=== PATIENT | male | born 1950 | race Caucasian/White ===

== ENCOUNTER 2020-02-23 09:57 | Inpatient (IN) ==
[2020-02-23] MEDS ORDERED: AZITHROMYCIN INJ 500 MG in SODIUM CHLORIDE 0.9% 250 ML IV STA (10:29)
[2020-02-23] MEDS ORDERED: SODIUM CHLORIDE 0.9% 500 ML IV STA (10:29)
[2020-02-23] MEDS ORDERED: methylPREDNISolone SOD SUC 125 MG/2 ML VIAL IV STA (10:29)
[2020-02-23] MEDS ORDERED: DICYCLOMINE 20 MG/2 ML AMP IM ONE (10:29)
[2020-02-23] MEDS ORDERED: ONDANSETRON 4 MG/2 ML VIAL IV STA (10:29)
[2020-02-23 11:37] LABS: Basophils % 0.5 % (0.0-0.8); Hematocrit 40.5 VOL% (42.0-52.0); Hemoglobin 13.3 GM/DL (14.0-18.0); Immature Granulocytes % 0.5 %; Immature Granulocytes Absolute 0.02 #; Lymphocytes # 0.5 10*3/uL (1.4-4.0); Lymphocytes % 12.7 % (21.2-54.2); Mean Corpuscular HGB Conc 32.8 GM/DL (32-36); Mean Corpuscular Volume 82.2 FL (87-102); Mean Platelet Volume 10.3 FL (9.6-12.0); Monocytes % 9.1 % (1.7-12.7); Neutrophils % 77.2 % (38.7-73.9); Platelet Count 263 T/CUMM (130-400); Red Blood Count 4.93 MC/CUMM (3.8-5.5); Red Cell Distribution Width 12.8 % (9.3-17.3); White Blood Count 3.9 T/CUMM (4-12)
[2020-02-23 11:52] LABS: PT Patient Result 10.9 SECS (9.8-11.9); Partial Thromboplastin Time 32.4 SECS (23.9-33.8)
[2020-02-23 12:06] LABS: Alanine Aminotransferase 30 U/L (16-61); Albumin 3.5 G/DL (3.4-5.0); Alkaline Phosphatase 70 U/L (45-117); Amylase 94 U/L (25-115); Aspartate Amino Transferase 38 U/L (0-37); Blood Urea Nitrogen 12 MG/DL (7-18); Calcium 8.5 MG/DL (8.5-10.1); Estimated Glom Filtration Rate 71 ML/MIN; Ferritin 130.2 ng/ml (26-388); Glucose 91 MG/DL (74-106); Osmolality,Calculated 267.2 MOS/KG (273-304); Total Protein 7.9 G/DL (6.4-8.3); Troponin I < 0.015 NG/ML (0.00-0.045)
[2020-02-23] MEDS ORDERED: cefTRIAXone 1,000 MG in SODIUM CHLORIDE 0.9% 100 ML IV STA (12:07)
[2020-02-23] MEDS ORDERED: MAGNESIUM SULF RIDER 2 GM in PREMIX 1 EACH IV PRN (12:48)
[2020-02-23] MEDS ORDERED: MAGNESIUM SULF RIDER 4 GM in PREMIX 1 EACH IV PRN (12:48)
[2020-02-23] MEDS ORDERED: POTASSIUM CHLORIDE RIDER 10 MEQ in PREMIX 1 EACH IV PRN (12:48)
[2020-02-23] MEDS ORDERED: PROMETHAZINE 25 MG/1 ML VIAL IM PRN (12:52)
[2020-02-23] MEDS ORDERED: CALCIUM CARBONATE CHEW 500 MG TABLET PO PRN (12:52)
[2020-02-23] MEDS ORDERED: DEXTROSE 50% 25 GM/50 ML VIAL IV PRN (12:52)
[2020-02-23] MEDS ORDERED: hydrALAZINE 20 MG/1 ML VIAL IV PRN (12:52)
[2020-02-23] MEDS ORDERED: ALUMINUM/MAGNES/SIMETH MAX STR 30 ML UDCUP PO PRN (12:52)
[2020-02-23] MEDS ORDERED: GLUCAGON 1 MG VIAL IM PRN (12:52)
[2020-02-23] MEDS ORDERED: diphenhydrAMINE CAP 25 MG CAPSULE PO PRN (12:52)
[2020-02-23] MEDS ORDERED: LACTULOSE 20 GM/30 ML UDCUP PO PRN (12:52)
[2020-02-23] MEDS ORDERED: DOCUSATE SODIUM 100 MG CAPSULE PO PRN (12:52)
[2020-02-23] MEDS ORDERED: BISACODYL 5 MG TABLET PO PRN (12:52)
[2020-02-23] MEDS ORDERED: ZALEPLON 5 MG CAPSULE PO PRN (12:52)
[2020-02-23 13:49] LABS: Apearance,Urine CLEAR (Clear); Bilirubin,Urine Negative (Negative); Blood, Urine Small mg/dL (Negative); Glucose,Urine (UA) Negative (Negative); Ketones,Urine Negative (Negative); Mucus,Urine Occasional /LPF (Occasional); Nitrite,Urine Negative (Negative); Protein,Urine Negative; RBC,Urine 12 /HPF (0-4); Squamous Epithelial Cell,Urine Occasional /HPF (0-10); Urine Color Yellow (Yellow); Urine Specific Gravity 1.015 (1.001-1.035); Urine Urobilinogen < 2.0 EU/DL (0.2-1.0); WBC,Urine 3 /HPF (0-6)
[2020-02-23] MEDS: BENZONATATE 100 MG CAPSULE PO SCH ×2 (14:44→20:25)
[2020-02-23 17:13] LABS: ABG Base Excess -1.9 MMOL/L (-2.5-2.5); ABG HCO3 22.8 MMOL/L (20-26); ABG Oxygen Saturation 99.4 % (95-100); ABG PH 7.462 (7.35-7.45); ABG TCO2 18.1 MMOL/L (23-27)
[2020-02-23] MEDS: ENOXAPARIN 60 MG/0.6 ML SYRINGE SUBCUT SCH (20:24)
[2020-02-23] MEDS: traZODone 50 MG TABLET PO PRN (20:25)
[2020-02-23] MEDS: guaiFENesin/DM ER 600-30 MG TABLET PO SCH (20:25)
[2020-02-24 04:04] LABS: Hematocrit 36.6 VOL% (42.0-52.0); Immature Granulocytes % 0.6 %; Immature Granulocytes Absolute 0.01 #; Lymphocytes # 0.4 10*3/uL (1.4-4.0); Lymphocytes % 24.3 % (21.2-54.2); Mean Corpuscular HGB Conc 32.8 GM/DL (32-36); Mean Corpuscular Volume 82.8 FL (87-102); Mean Platelet Volume 10.7 FL (9.6-12.0); Monocytes % 6.2 % (1.7-12.7); Neutrophils % 68.9 % (38.7-73.9); Platelet Count 241 T/CUMM (130-400); Red Blood Count 4.42 MC/CUMM (3.8-5.5); Red Cell Distribution Width 12.8 % (9.3-17.3); White Blood Count 1.8 T/CUMM (4-12)
[2020-02-24 04:20] LABS: Albumin 3.2 G/DL (3.4-5.0); Bilirubin,Total 0.4 MG/DL (0.2-1.0); Calcium 8.3 MG/DL (8.5-10.1); Ferritin 129.6 ng/ml (26-388); Total Protein 7.3 G/DL (6.4-8.3)
[2020-02-24 04:25] LABS: Risk Ratio 3.88; Thyroid Stimulating Hormone 0.58 uIU/ml (0.358-3.74); VLDL CHOLESTEROL 22.2 MG/DL
[2020-02-24 06:13] LABS: Sedimentation Rate-Westergren 29 MM/HR (0-20)
[2020-02-24] MEDS: ENOXAPARIN 60 MG/0.6 ML SYRINGE SUBCUT SCH ×3 (08:20→21:51)
[2020-02-24] MEDS: BENZONATATE 100 MG CAPSULE PO SCH ×3 (08:20→21:41)
[2020-02-24] MEDS: ENALAPRIL 10 MG TABLET PO SCH (08:21)
[2020-02-24] MEDS: PANTOPRAZOLE 40 MG TABLET PO SCH (08:21)
[2020-02-24] MEDS: guaiFENesin/DM ER 600-30 MG TABLET PO SCH ×2 (08:21→21:41)
[2020-02-24 08:24] LABS: Hypochromasia 1+; Lymphocytes 30 % (20-55); Segmented Neutrophils 64 % (50-85)
[2020-02-24 08:25] LABS: Microcytosis Slight; Platelet Estimate Normal
[2020-02-24 08:26] LABS: Total Cells Counted 100
[2020-02-24] MEDS ORDERED: AZITHROMYCIN INJ 500 MG in SODIUM CHLORIDE 0.9% 250 ML IV SCH (09:00)
[2020-02-24] MEDS: busPIRone 5 MG TABLET PO SCH ×2 (11:20→21:41)
[2020-02-24 12:47] LABS: PT Patient Result 10.4 SECS (9.8-11.9)
[2020-02-24] MEDS: cefTRIAXone 1,000 MG in SYRINGE 1 EACH IV SCH (13:16)
[2020-02-25] MEDS: SIMETHICONE CHEW 125 MG TABLET PO PRN ×2 (04:38→11:37)
[2020-02-25 06:09] LABS: Hematocrit 35.1 VOL% (42.0-52.0); Hemoglobin 11.7 GM/DL (14.0-18.0); Immature Granulocytes % 0.6 %; Immature Granulocytes Absolute 0.06 #; Lymphocytes # 0.7 10*3/uL (1.4-4.0); Lymphocytes % 6.5 % (21.2-54.2); Mean Corpuscular HGB Conc 33.3 GM/DL (32-36); Mean Platelet Volume 10.6 FL (9.6-12.0); Monocytes % 3.4 % (1.7-12.7); Neutrophils % 89.5 % (38.7-73.9); Platelet Count 287 T/CUMM (130-400); Red Blood Count 4.28 MC/CUMM (3.8-5.5); Red Cell Distribution Width 12.9 % (9.3-17.3); White Blood Count 10.2 T/CUMM (4-12)
[2020-02-25 06:33] LABS: Albumin 2.9 G/DL (3.4-5.0); Bilirubin,Total 1.3 MG/DL (0.2-1.0); Ferritin 104.8 ng/ml (26-388); Osmolality,Calculated 273.1 MOS/KG (273-304); Total Protein 6.7 G/DL (6.4-8.3)
[2020-02-25 06:39] LABS: PT Patient Result 10.6 SECS (9.8-11.9)
[2020-02-25 07:30] LABS: Sedimentation Rate-Westergren 46 MM/HR (0-20)
[2020-02-25] MEDS: guaiFENesin/DM ER 600-30 MG TABLET PO SCH ×2 (08:22→20:55)
[2020-02-25] MEDS: BENZONATATE 100 MG CAPSULE PO SCH ×3 (08:23→20:55)
[2020-02-25] MEDS: ENALAPRIL 10 MG TABLET PO SCH (08:23)
[2020-02-25] MEDS: busPIRone 5 MG TABLET PO SCH ×2 (08:23→20:55)
[2020-02-25] MEDS: PANTOPRAZOLE 40 MG TABLET PO SCH (08:23)
[2020-02-25] MEDS: cefTRIAXone 1,000 MG in SYRINGE 1 EACH IV SCH (10:46)
[2020-02-25] MEDS: AZITHROMYCIN 250 MG TABLET PO SCH (10:46)
[2020-02-25] MEDS: ONDANSETRON 4 MG/2 ML VIAL IV PRN ×2 (11:38→21:01)
[2020-02-25] MEDS: traZODone 50 MG TABLET PO PRN (20:56)
[2020-02-25] MEDS: ENOXAPARIN 40 MG/0.4 ML SYRINGE SUBCUT SCH (22:57)
[2020-02-26] MEDS: ONDANSETRON 4 MG/2 ML VIAL IV PRN ×4 (04:43→23:57)
[2020-02-26] MEDS: ACETAMINOPHEN 325 MG TABLET PO PRN ×2 (04:45→11:43)
[2020-02-26 06:20] LABS: INR 1.1; PT Patient Result 11.6 SECS (9.8-11.9)
[2020-02-26 06:28] LABS: Basophils % 0.1 % (0.0-0.8); Hematocrit 34.6 VOL% (42.0-52.0); Hemoglobin 11.2 GM/DL (14.0-18.0); Immature Granulocytes % 0.6 %; Immature Granulocytes Absolute 0.06 #; Lymphocytes # 0.4 10*3/uL (1.4-4.0); Lymphocytes % 3.8 % (21.2-54.2); Mean Corpuscular HGB Conc 32.4 GM/DL (32-36); Mean Platelet Volume 10.7 FL (9.6-12.0); Monocytes % 3.9 % (1.7-12.7); Neutrophils % 91.6 % (38.7-73.9); Platelet Count 301 T/CUMM (130-400); Red Blood Count 4.12 MC/CUMM (3.8-5.5); Red Cell Distribution Width 13.2 % (9.3-17.3); White Blood Count 9.9 T/CUMM (4-12)
[2020-02-26 06:50] LABS: Albumin 2.8 G/DL (3.4-5.0); Bilirubin,Total 1.4 MG/DL (0.2-1.0); Calcium 8.1 MG/DL (8.5-10.1); Ferritin 134.8 ng/ml (26-388); Osmolality,Calculated 267.5 MOS/KG (273-304); Total Protein 6.8 G/DL (6.4-8.3)
[2020-02-26 07:02] LABS: Hypochromasia 1+; Lymphocytes 3 % (20-55); Microcytosis Slight; Platelet Estimate Adequate; Segmented Neutrophils 97 % (50-85); Total Cells Counted 100
[2020-02-26 08:21] LABS: Sedimentation Rate-Westergren 57 MM/HR (0-20)
[2020-02-26] MEDS: ENALAPRIL 10 MG TABLET PO SCH (08:31)
[2020-02-26] MEDS: BENZONATATE 100 MG CAPSULE PO SCH ×3 (08:31→21:27)
[2020-02-26] MEDS: busPIRone 5 MG TABLET PO SCH ×2 (08:31→21:28)
[2020-02-26] MEDS: cefTRIAXone 1,000 MG in SYRINGE 1 EACH IV SCH (08:31)
[2020-02-26] MEDS: guaiFENesin/DM ER 600-30 MG TABLET PO SCH ×2 (08:31→21:28)
[2020-02-26] MEDS: AZITHROMYCIN 250 MG TABLET PO SCH (08:31)
[2020-02-26] MEDS: ENOXAPARIN 40 MG/0.4 ML SYRINGE SUBCUT SCH (21:28)
[2020-02-26] MEDS: traZODone 50 MG TABLET PO PRN (21:28)
[2020-02-27 00:02] LABS: Specimen Source THROAT
[2020-02-27 06:13] LABS: Basophils % 0.1 % (0.0-0.8); Hematocrit 34.3 VOL% (42.0-52.0); Hemoglobin 11.1 GM/DL (14.0-18.0); Immature Granulocytes % 0.4 %; Immature Granulocytes Absolute 0.05 #; Lymphocytes # 0.5 10*3/uL (1.4-4.0); Lymphocytes % 4.5 % (21.2-54.2); Mean Corpuscular HGB Conc 32.4 GM/DL (32-36); Mean Corpuscular Volume 84.3 FL (87-102); Mean Platelet Volume 10.5 FL (9.6-12.0); Monocytes % 2.8 % (1.7-12.7); Neutrophils % 92.2 % (38.7-73.9); Platelet Count 338 T/CUMM (130-400); Red Blood Count 4.07 MC/CUMM (3.8-5.5); Red Cell Distribution Width 13.1 % (9.3-17.3); White Blood Count 11.4 T/CUMM (4-12)
[2020-02-27 06:27] LABS: INR 1.1; PT Patient Result 12.1 SECS (9.8-11.9)
[2020-02-27 06:36] LABS: Hypochromasia 1+; Lymphocytes 8 % (20-55); Microcytosis Slight; Platelet Estimate Adequate; Segmented Neutrophils 91 % (50-85); Total Cells Counted 100
[2020-02-27 06:55] LABS: Albumin 2.6 G/DL (3.4-5.0); Bilirubin,Total 1.2 MG/DL (0.2-1.0); Calcium 8.1 MG/DL (8.5-10.1); Ferritin 263.6 ng/ml (26-388); Osmolality,Calculated 267.5 MOS/KG (273-304); Total Protein 6.7 G/DL (6.4-8.3)
[2020-02-27 07:50] LABS: Sedimentation Rate-Westergren 60 MM/HR (0-20)
[2020-02-27] MEDS: AZITHROMYCIN 250 MG TABLET PO SCH (08:31)
[2020-02-27] MEDS: cefTRIAXone 1,000 MG in SYRINGE 1 EACH IV SCH (08:31)
[2020-02-27] MEDS: SIMETHICONE CHEW 125 MG TABLET PO PRN (08:31)
[2020-02-27] MEDS: guaiFENesin/DM ER 600-30 MG TABLET PO SCH ×2 (08:31→21:14)
[2020-02-27] MEDS: busPIRone 5 MG TABLET PO SCH ×2 (08:32→21:13)
[2020-02-27] MEDS: BENZONATATE 100 MG CAPSULE PO SCH ×3 (08:32→21:14)
[2020-02-27] MEDS: ENALAPRIL 10 MG TABLET PO SCH (08:32)
[2020-02-27] MEDS ORDERED: SODIUM PHOSPHATE ENEMA 133 ML BOTTLE RECTAL PRN (16:40)
[2020-02-27] MEDS: SIMETHICONE CHEW 125 MG TABLET PO SCH ×3 (17:07→22:30)
[2020-02-27] MEDS: METOCLOPRAMIDE 10 MG/2 ML VIAL IV SCH ×2 (17:07→23:47)
[2020-02-27 17:26] LABS: Apearance,Urine CLEAR (Clear); Bilirubin,Urine Negative (Negative); Blood, Urine Small mg/dL (Negative); Glucose,Urine (UA) Negative (Negative); Ketones,Urine 20 mg/dL (Negative); Mucus,Urine Occasional /LPF (Occasional); Nitrite,Urine Negative (Negative); Protein,Urine 30 MG/DL; RBC,Urine 2 /HPF (0-4); Urine Color Yellow (Yellow); Urine Specific Gravity 1.026 (1.001-1.035); Urine Urobilinogen < 2.0 EU/DL (0.2-1.0); WBC,Urine 2 /HPF (0-6)
[2020-02-27] MEDS: ENOXAPARIN 40 MG/0.4 ML SYRINGE SUBCUT SCH (21:14)
[2020-02-27] MEDS: traZODone 50 MG TABLET PO PRN (21:14)
[2020-02-27] MEDS: ACETAMINOPHEN 325 MG TABLET PO PRN (23:47)
[2020-02-28] MEDS: METOCLOPRAMIDE 10 MG/2 ML VIAL IV SCH ×2 (05:30→12:16)
[2020-02-28 05:37] LABS: Basophils % 0.1 % (0.0-0.8); Hematocrit 34.2 VOL% (42.0-52.0); Hemoglobin 11.2 GM/DL (14.0-18.0); Immature Granulocytes % 0.3 %; Immature Granulocytes Absolute 0.02 #; Lymphocytes # 0.6 10*3/uL (1.4-4.0); Lymphocytes % 8.2 % (21.2-54.2); Mean Corpuscular HGB Conc 32.7 GM/DL (32-36); Mean Corpuscular Volume 82.8 FL (87-102); Mean Platelet Volume 10.1 FL (9.6-12.0); Monocytes % 5.3 % (1.7-12.7); Neutrophils % 86.1 % (38.7-73.9); Platelet Count 360 T/CUMM (130-400); Red Blood Count 4.13 MC/CUMM (3.8-5.5); Red Cell Distribution Width 12.8 % (9.3-17.3); White Blood Count 7.4 T/CUMM (4-12)
[2020-02-28 05:45] LABS: PT Patient Result 11.2 SECS (9.8-11.9)
[2020-02-28 05:58] LABS: Albumin 2.3 G/DL (3.4-5.0); Bilirubin,Total 0.8 MG/DL (0.2-1.0); Ferritin 416.6 ng/ml (26-388); Osmolality,Calculated 269.5 MOS/KG (273-304); Total Protein 6.4 G/DL (6.4-8.3)
[2020-02-28 06:48] LABS: Sedimentation Rate-Westergren 97 MM/HR (0-20)
[2020-02-28] MEDS: guaiFENesin/DM ER 600-30 MG TABLET PO SCH (08:58)
[2020-02-28] MEDS: SIMETHICONE CHEW 125 MG TABLET PO SCH ×2 (08:58→12:17)
[2020-02-28] MEDS: ENALAPRIL 10 MG TABLET PO SCH (08:58)
[2020-02-28] MEDS: AZITHROMYCIN 250 MG TABLET PO SCH (08:58)
[2020-02-28] MEDS: cefTRIAXone 1,000 MG in SYRINGE 1 EACH IV SCH (08:59)
[2020-02-28] MEDS: BENZONATATE 100 MG CAPSULE PO SCH (08:59)
[2020-02-28] MEDS: busPIRone 5 MG TABLET PO SCH (08:59)
[2020-02-28] MEDS: ACETAMINOPHEN 325 MG TABLET PO PRN (08:59)
[2020-02-28 11:59] VITALS: BP 125/68
== END 2020-02-28 13:44 | disposition home or self-care (01) | DRG 177 ==
LOC: N.ED 09:57 → SUATTDRO 12:52 → N.EDINP 12:52 → N.CC 14:07 → N.2E 02-24 13:31
PROVIDERS: ADMIT Hospitalist; ATTEND Internal Medicine

== ENCOUNTER 2020-03-01 13:08 | Inpatient (IN) ==
[2020-03-01] MEDS ORDERED: AZITHROMYCIN 250 MG TABLET PO STA (13:46)
[2020-03-01] MEDS ORDERED: ASPIRIN 325 MG TABLET ONE (13:46)
[2020-03-01] MEDS ORDERED: SODIUM CHLORIDE 0.9% 1,000 ML IV STA (13:46)
[2020-03-01] MEDS ORDERED: methylPREDNISolone SOD SUC 125 MG/2 ML VIAL IV STA (13:46)
[2020-03-01] MEDS ORDERED: VANCOMYCIN INJ 1,250 MG in SODIUM CHLORIDE 0.9% 250 ML IV STA (13:46)
[2020-03-01] MEDS ORDERED: VANCOMYCIN 1,000 MG VIAL ONE (14:03)
[2020-03-01] MEDS ORDERED: ACETAMINOPHEN 500 MG TABLET ONE (14:04)
[2020-03-01 14:32] LABS: Basophils % 0.1 % (0.0-0.8); Eosinophils % 0.1 % (0.00-10.9); Hematocrit 35.1 VOL% (42.0-52.0); Hemoglobin 11.7 GM/DL (14.0-18.0); Immature Granulocytes % 0.8 %; Immature Granulocytes Absolute 0.06 #; Lymphocytes # 0.5 10*3/uL (1.4-4.0); Lymphocytes % 6.9 % (21.2-54.2); Mean Corpuscular HGB Conc 33.3 GM/DL (32-36); Mean Corpuscular Volume 81.3 FL (87-102); Mean Platelet Volume 9.7 FL (9.6-12.0); Monocytes % 9.2 % (1.7-12.7); Neutrophils % 82.9 % (38.7-73.9); Platelet Count 406 T/CUMM (130-400); Red Blood Count 4.32 MC/CUMM (3.8-5.5); Red Cell Distribution Width 12.7 % (9.3-17.3); White Blood Count 7.5 T/CUMM (4-12)
[2020-03-01 14:43] LABS: INR 1.3; PT Patient Result 14.1 SECS (9.8-11.9)
[2020-03-01] MEDS ORDERED: ACETAMINOPHEN 500 MG TABLET PO STA (14:45)
[2020-03-01 15:05] LABS: Alanine Aminotransferase 36 U/L (16-61); Albumin 2.4 G/DL (3.4-5.0); Alkaline Phosphatase 56 U/L (45-117); Aspartate Amino Transferase 58 U/L (0-37); Blood Urea Nitrogen 20 MG/DL (7-18); Calcium 8.2 MG/DL (8.5-10.1); Estimated Glom Filtration Rate 77 ML/MIN; Glucose 109 MG/DL (74-106); Osmolality,Calculated 271.2 MOS/KG (273-304); Troponin I 0.016 NG/ML (0.00-0.045)
[2020-03-01] MEDS ORDERED: POTASSIUM BICARB EFFERVESCENT 25 MEQ TABLET PO ONE (15:29)
[2020-03-01] MEDS ORDERED: ONDANSETRON 4 MG/2 ML VIAL IV PRN (17:58)
[2020-03-01] MEDS: SODIUM CHLOR 0.9% KCL 40 MEQ 40 MEQ/1,000 ML BAG IV SCH (20:41)
[2020-03-01] MEDS: CEFEPIME 1,000 MG in SODIUM CHLORIDE 0.9% 100 ML IV SCH (20:42)
[2020-03-01] MEDS: POTASSIUM CHLORIDE 20 MEQ TABLET PO SCH ×2 (20:43→23:54)
[2020-03-01] MEDS ORDERED: ENOXAPARIN 40 MG/0.4 ML SYRINGE SUBCUT SCH (21:00)
[2020-03-01] MEDS ORDERED: POTASSIUM CHLORIDE 20 MEQ TABLET PO SCH (23:30)
[2020-03-02] MEDS: CEFEPIME 1,000 MG in SODIUM CHLORIDE 0.9% 100 ML IV SCH ×4 (03:03→20:57)
[2020-03-02 04:12] LABS: Basophils % 0.2 % (0.0-0.8); Hematocrit 32.3 VOL% (42.0-52.0); Immature Granulocytes % 0.4 %; Immature Granulocytes Absolute 0.02 #; Lymphocytes # 0.5 10*3/uL (1.4-4.0); Lymphocytes % 8.5 % (21.2-54.2); Mean Corpuscular HGB Conc 34.1 GM/DL (32-36); Mean Corpuscular Volume 80.5 FL (87-102); Mean Platelet Volume 10.3 FL (9.6-12.0); Monocytes % 8.5 % (1.7-12.7); Neutrophils % 82.4 % (38.7-73.9); Platelet Count 342 T/CUMM (130-400); Red Blood Count 4.01 MC/CUMM (3.8-5.5); White Blood Count 5.4 T/CUMM (4-12)
[2020-03-02 04:33] LABS: Bilirubin,Total 0.7 MG/DL (0.2-1.0); Calcium 8.1 MG/DL (8.5-10.1); Osmolality,Calculated 280.7 MOS/KG (273-304); Total Protein 6.1 G/DL (6.4-8.3)
[2020-03-02] MEDS: SODIUM CHLOR 0.9% KCL 40 MEQ 40 MEQ/1,000 ML BAG IV SCH ×2 (06:58→13:22)
[2020-03-02] MEDS: PANTOPRAZOLE 40 MG TABLET PO SCH (09:18)
[2020-03-02] MEDS: DEXAMETHASONE INJ 6 MG in SODIUM CHLORIDE 0.9% 50 ML IV SCH (10:02)
[2020-03-02] MEDS: ENALAPRIL 20 MG TABLET PO SCH (13:20)
[2020-03-02] MEDS: SODIUM CHLORIDE 0.9% 1,000 ML IV SCH (13:20)
[2020-03-02] MEDS: ENOXAPARIN 40 MG/0.4 ML SYRINGE SUBCUT SCH (13:21)
[2020-03-02 16:11] LABS: Apearance,Urine CLEAR (Clear); Bilirubin,Urine Negative (Negative); Blood, Urine Small mg/dL (Negative); Glucose,Urine (UA) Negative (Negative); Ketones,Urine Negative (Negative); Mucus,Urine Occasional /LPF (Occasional); Nitrite,Urine Negative (Negative); Protein,Urine 30 MG/DL; RBC,Urine 2 /HPF (0-4); Squamous Epithelial Cell,Urine Occasional /HPF (0-10); Urine Color Yellow (Yellow); Urine Specific Gravity 1.031 (1.001-1.035); Urine Urobilinogen < 2.0 EU/DL (0.2-1.0); WBC,Urine 4 /HPF (0-6)
[2020-03-02] MEDS ORDERED: REMDESIVIR 200 MG in SODIUM CHLORIDE 0.9% 210 ML IV ONE (17:00)
[2020-03-02] MEDS: DICYCLOMINE 10 MG CAPSULE PO PRN (17:06)
[2020-03-02] MEDS ORDERED: AZITHROMYCIN INJ 500 MG in SODIUM CHLORIDE 0.9% 250 ML IV SCH (18:00)
[2020-03-02] MEDS ORDERED: AZITHROMYCIN 250 MG TABLET PO SCH (19:00)
[2020-03-03] MEDS: ENOXAPARIN 40 MG/0.4 ML SYRINGE SUBCUT SCH ×2 (00:58→12:19)
[2020-03-03] MEDS: CEFEPIME 1,000 MG in SODIUM CHLORIDE 0.9% 100 ML IV SCH ×4 (02:21→20:43)
[2020-03-03] MEDS: SODIUM CHLORIDE 0.9% 1,000 ML IV SCH ×3 (04:46→16:44)
[2020-03-03] MEDS: DICYCLOMINE 10 MG CAPSULE PO PRN (05:18)
[2020-03-03 05:54] LABS: Basophils % 0.1 % (0.0-0.8); Hematocrit 31.3 VOL% (42.0-52.0); Hemoglobin 10.5 GM/DL (14.0-18.0); Immature Granulocytes % 0.8 %; Immature Granulocytes Absolute 0.09 #; Lymphocytes # 0.6 10*3/uL (1.4-4.0); Lymphocytes % 5.4 % (21.2-54.2); Mean Corpuscular HGB Conc 33.5 GM/DL (32-36); Mean Corpuscular Volume 81.3 FL (87-102); Mean Platelet Volume 10.5 FL (9.6-12.0); Monocytes % 3.4 % (1.7-12.7); Neutrophils % 90.3 % (38.7-73.9); Platelet Count 406 T/CUMM (130-400); Red Blood Count 3.85 MC/CUMM (3.8-5.5); Red Cell Distribution Width 13.6 % (9.3-17.3); White Blood Count 11.2 T/CUMM (4-12)
[2020-03-03 06:06] LABS: Bilirubin,Total 0.7 MG/DL (0.2-1.0); Calcium 8.1 MG/DL (8.5-10.1); Osmolality,Calculated 280.5 MOS/KG (273-304)
[2020-03-03] MEDS: ENALAPRIL 20 MG TABLET PO SCH (09:02)
[2020-03-03] MEDS: PANTOPRAZOLE 40 MG TABLET PO SCH (09:02)
[2020-03-03] MEDS: guaiFENesin/CODEINE 5 ML LIQUID PO PRN ×2 (09:03→16:45)
[2020-03-03] MEDS: DEXAMETHASONE INJ 6 MG in SODIUM CHLORIDE 0.9% 50 ML IV SCH (09:04)
[2020-03-03] MEDS: REMDESIVIR 100 MG in SODIUM CHLORIDE 0.9% 230 ML IV SCH (12:19)
[2020-03-03] MEDS ORDERED: ZINC SULFATE 220 MG CAPSULE PO ONE (16:32)
[2020-03-03] MEDS ORDERED: amLODIPine 5 MG TABLET PO ONE (16:38)
[2020-03-03] MEDS: ASCORBIC ACID 500 MG TABLET PO SCH (20:42)
[2020-03-04] MEDS: ENOXAPARIN 40 MG/0.4 ML SYRINGE SUBCUT SCH ×3 (01:09→23:55)
[2020-03-04] MEDS: CEFEPIME 1,000 MG in SODIUM CHLORIDE 0.9% 100 ML IV SCH ×4 (02:55→21:48)
[2020-03-04] MEDS: guaiFENesin/CODEINE 5 ML LIQUID PO PRN ×2 (04:11→22:48)
[2020-03-04] MEDS: SODIUM CHLORIDE 0.9% 1,000 ML IV SCH ×3 (05:37→15:52)
[2020-03-04 05:42] LABS: Basophils % 0.1 % (0.0-0.8); Eosinophils % 0.4 % (0.00-10.9); Hematocrit 29.4 VOL% (42.0-52.0); Hemoglobin 9.4 GM/DL (14.0-18.0); Immature Granulocytes Absolute 0.15 #; Lymphocytes # 0.5 10*3/uL (1.4-4.0); Lymphocytes % 6.9 % (21.2-54.2); Mean Corpuscular Volume 83.5 FL (87-102); Mean Platelet Volume 10.3 FL (9.6-12.0); Monocytes % 6.4 % (1.7-12.7); Neutrophils % 84.2 % (38.7-73.9); Platelet Count 356 T/CUMM (130-400); Red Blood Count 3.52 MC/CUMM (3.8-5.5); Red Cell Distribution Width 13.5 % (9.3-17.3); White Blood Count 7.6 T/CUMM (4-12)
[2020-03-04 06:10] LABS: Albumin 1.8 G/DL (3.4-5.0); Bilirubin,Total 1.1 MG/DL (0.2-1.0); Calcium 7.8 MG/DL (8.5-10.1); Osmolality,Calculated 276.7 MOS/KG (273-304); Total Protein 5.6 G/DL (6.4-8.3)
[2020-03-04] MEDS: DEXAMETHASONE INJ 6 MG in SODIUM CHLORIDE 0.9% 50 ML IV SCH ×2 (08:11→09:27)
[2020-03-04] MEDS: ASCORBIC ACID 500 MG TABLET PO SCH ×2 (08:12→21:48)
[2020-03-04] MEDS: ENALAPRIL 20 MG TABLET PO SCH (08:12)
[2020-03-04] MEDS: amLODIPine 5 MG TABLET PO SCH (16:38)
[2020-03-04] MEDS: REMDESIVIR 100 MG in SODIUM CHLORIDE 0.9% 230 ML IV SCH (17:37)
[2020-03-04] MEDS: ALBUMIN 25% 25 GM in PREMIX 1 EACH IV SCH (21:48)
[2020-03-05] MEDS: SODIUM CHLORIDE 0.9% 1,000 ML IV SCH (03:40)
[2020-03-05] MEDS: CEFEPIME 1,000 MG in SODIUM CHLORIDE 0.9% 100 ML IV SCH ×4 (03:40→21:53)
[2020-03-05] MEDS: ALBUMIN 25% 25 GM in PREMIX 1 EACH IV SCH ×2 (04:58→12:48)
[2020-03-05] MEDS: guaiFENesin/CODEINE 5 ML LIQUID PO PRN (06:16)
[2020-03-05 06:23] LABS: Basophils % 0.1 % (0.0-0.8); Eosinophils # 0.1 10*3/uL (0.0-0.87); Hemoglobin 9.3 GM/DL (14.0-18.0); Immature Granulocytes % 2.9 %; Lymphocytes # 0.6 10*3/uL (1.4-4.0); Lymphocytes % 8.9 % (21.2-54.2); Mean Corpuscular HGB Conc 33.2 GM/DL (32-36); Mean Corpuscular Volume 82.1 FL (87-102); Mean Platelet Volume 10.5 FL (9.6-12.0); Monocytes % 5.5 % (1.7-12.7); Neutrophils % 81.6 % (38.7-73.9); Platelet Count 357 T/CUMM (130-400); Red Blood Count 3.41 MC/CUMM (3.8-5.5); Red Cell Distribution Width 13.9 % (9.3-17.3); White Blood Count 6.9 T/CUMM (4-12)
[2020-03-05 06:38] LABS: Calcium 7.9 MG/DL (8.5-10.1); Osmolality,Calculated 279.4 MOS/KG (273-304)
[2020-03-05] MEDS: ALPRAZolam 0.5 MG TABLET PO SCH ×2 (09:00→21:54)
[2020-03-05] MEDS: ASCORBIC ACID 500 MG TABLET PO SCH ×2 (09:23→21:54)
[2020-03-05] MEDS: ALBUTEROL INHALER 18 GM INH SCH ×3 (09:23→21:54)
[2020-03-05] MEDS: amLODIPine 5 MG TABLET PO SCH (09:23)
[2020-03-05] MEDS: ENALAPRIL 20 MG TABLET PO SCH (09:23)
[2020-03-05] MEDS: DEXAMETHASONE INJ 6 MG in SODIUM CHLORIDE 0.9% 50 ML IV SCH (09:25)
[2020-03-05] MEDS: ENOXAPARIN 40 MG/0.4 ML SYRINGE SUBCUT SCH (12:48)
[2020-03-05] MEDS: REMDESIVIR 100 MG in SODIUM CHLORIDE 0.9% 230 ML IV SCH (16:22)
[2020-03-06] MEDS: ENOXAPARIN 40 MG/0.4 ML SYRINGE SUBCUT SCH ×2 (00:37→13:08)
[2020-03-06] MEDS: ALBUTEROL INHALER 18 GM INH SCH ×4 (03:19→21:49)
[2020-03-06] MEDS: CEFEPIME 1,000 MG in SODIUM CHLORIDE 0.9% 100 ML IV SCH ×4 (03:19→21:49)
[2020-03-06 05:28] LABS: Eosinophils % 0.6 % (0.00-10.9); Hematocrit 26.8 VOL% (42.0-52.0); Hemoglobin 8.7 GM/DL (14.0-18.0); Immature Granulocytes % 2.9 %; Lymphocytes # 0.6 10*3/uL (1.4-4.0); Lymphocytes % 9.2 % (21.2-54.2); Mean Corpuscular HGB Conc 32.5 GM/DL (32-36); Mean Corpuscular Volume 83.8 FL (87-102); Mean Platelet Volume 10.6 FL (9.6-12.0); Monocytes % 6.1 % (1.7-12.7); Neutrophils % 81.2 % (38.7-73.9); Platelet Count 349 T/CUMM (130-400); White Blood Count 6.8 T/CUMM (4-12)
[2020-03-06 06:12] LABS: Albumin 2.4 G/DL (3.4-5.0); Osmolality,Calculated 281.4 MOS/KG (273-304); Total Protein 5.8 G/DL (6.4-8.3)
[2020-03-06] MEDS: DEXAMETHASONE INJ 6 MG in SODIUM CHLORIDE 0.9% 50 ML IV SCH (08:28)
[2020-03-06] MEDS: ASCORBIC ACID 500 MG TABLET PO SCH ×2 (08:31→21:49)
[2020-03-06] MEDS: ALPRAZolam 0.5 MG TABLET PO SCH ×2 (08:31→21:49)
[2020-03-06] MEDS: ENALAPRIL 20 MG TABLET PO SCH (08:31)
[2020-03-06] MEDS: amLODIPine 5 MG TABLET PO SCH (08:31)
[2020-03-06] MEDS: REMDESIVIR 100 MG in SODIUM CHLORIDE 0.9% 230 ML IV SCH (17:12)
[2020-03-07] MEDS: ENOXAPARIN 40 MG/0.4 ML SYRINGE SUBCUT SCH ×2 (00:41→20:52)
[2020-03-07] MEDS: CEFEPIME 1,000 MG in SODIUM CHLORIDE 0.9% 100 ML IV SCH (03:25)
[2020-03-07] MEDS: ALBUTEROL INHALER 18 GM INH SCH ×4 (03:25→20:53)
[2020-03-07 06:29] LABS: Basophils % 0.1 % (0.0-0.8); Eosinophils # 0.1 10*3/uL (0.0-0.87); Eosinophils % 0.9 % (0.00-10.9); Hematocrit 26.5 VOL% (42.0-52.0); Hemoglobin 8.7 GM/DL (14.0-18.0); Immature Granulocytes % 2.9 %; Immature Granulocytes Absolute 0.25 #; Lymphocytes # 0.8 10*3/uL (1.4-4.0); Lymphocytes % 8.9 % (21.2-54.2); Mean Corpuscular HGB Conc 32.8 GM/DL (32-36); Mean Corpuscular Volume 82.6 FL (87-102); Mean Platelet Volume 10.5 FL (9.6-12.0); Monocytes % 7.3 % (1.7-12.7); Neutrophils % 79.9 % (38.7-73.9); Platelet Count 356 T/CUMM (130-400); Red Blood Count 3.21 MC/CUMM (3.8-5.5); White Blood Count 8.6 T/CUMM (4-12)
[2020-03-07 06:44] LABS: Calcium 8.1 MG/DL (8.5-10.1); Osmolality,Calculated 281.4 MOS/KG (273-304)
[2020-03-07] MEDS: DEXAMETHASONE INJ 6 MG in SODIUM CHLORIDE 0.9% 50 ML IV SCH (09:11)
[2020-03-07] MEDS: ASCORBIC ACID 500 MG TABLET PO SCH ×2 (09:12→20:52)
[2020-03-07] MEDS: ALPRAZolam 0.5 MG TABLET PO SCH ×2 (09:12→20:52)
[2020-03-07] MEDS: amLODIPine 5 MG TABLET PO SCH (09:12)
[2020-03-07] MEDS: ENALAPRIL 20 MG TABLET PO SCH (09:12)
[2020-03-07] MEDS: ZINC SULFATE 220 MG CAPSULE PO SCH (09:30)
[2020-03-07] MEDS ORDERED: POTASSIUM CHLORIDE 20 MEQ/15 ML UDCUP PO ONE (15:00)
[2020-03-08] MEDS: ALBUTEROL INHALER 18 GM INH SCH ×4 (04:00→21:08)
[2020-03-08 06:39] LABS: Basophils % 0.1 % (0.0-0.8); Eosinophils # 0.1 10*3/uL (0.0-0.87); Eosinophils % 1.7 % (0.00-10.9); Hematocrit 29.3 VOL% (42.0-52.0); Hemoglobin 9.2 GM/DL (14.0-18.0); Immature Granulocytes % 3.3 %; Immature Granulocytes Absolute 0.26 #; Lymphocytes # 0.9 10*3/uL (1.4-4.0); Mean Corpuscular HGB Conc 31.4 GM/DL (32-36); Mean Corpuscular Volume 85.9 FL (87-102); Mean Platelet Volume 10.8 FL (9.6-12.0); Monocytes % 7.9 % (1.7-12.7); Platelet Count 337 T/CUMM (130-400); Red Blood Count 3.41 MC/CUMM (3.8-5.5); Red Cell Distribution Width 14.5 % (9.3-17.3); White Blood Count 7.8 T/CUMM (4-12)
[2020-03-08 07:05] LABS: Osmolality,Calculated 286.1 MOS/KG (273-304)
[2020-03-08] MEDS: ENOXAPARIN 40 MG/0.4 ML SYRINGE SUBCUT SCH ×2 (09:16→21:08)
[2020-03-08] MEDS: DEXAMETHASONE INJ 6 MG in SODIUM CHLORIDE 0.9% 50 ML IV SCH (09:16)
[2020-03-08] MEDS: ENALAPRIL 20 MG TABLET PO SCH (09:17)
[2020-03-08] MEDS: ALPRAZolam 0.5 MG TABLET PO SCH ×2 (09:17→21:08)
[2020-03-08] MEDS: amLODIPine 5 MG TABLET PO SCH (09:17)
[2020-03-08] MEDS: ASCORBIC ACID 500 MG TABLET PO SCH ×2 (09:17→21:08)
[2020-03-08] MEDS ORDERED: DEXAMETHASONE 4 MG TABLET PO SCH (21:00)
[2020-03-08] MEDS: guaiFENesin/CODEINE 5 ML LIQUID PO PRN (22:52)
[2020-03-09] MEDS: ALBUTEROL INHALER 18 GM INH SCH ×4 (03:47→21:47)
[2020-03-09] MEDS: ENOXAPARIN 40 MG/0.4 ML SYRINGE SUBCUT SCH (09:29)
[2020-03-09] MEDS: amLODIPine 5 MG TABLET PO SCH (09:29)
[2020-03-09] MEDS: ASCORBIC ACID 500 MG TABLET PO SCH ×2 (09:29→21:46)
[2020-03-09] MEDS: DEXAMETHASONE 4 MG TABLET PO SCH (09:29)
[2020-03-09] MEDS: ZINC SULFATE 220 MG CAPSULE PO SCH (09:29)
[2020-03-09] MEDS: ENALAPRIL 20 MG TABLET PO SCH (09:29)
[2020-03-09] MEDS: ALPRAZolam 0.5 MG TABLET PO SCH ×2 (10:44→21:46)
[2020-03-09] MEDS: guaiFENesin/CODEINE 5 ML LIQUID PO PRN (23:58)
[2020-03-10] MEDS: ALBUTEROL INHALER 18 GM INH SCH ×4 (03:18→20:16)
[2020-03-10 06:26] LABS: Basophils % 0.1 % (0.0-0.8); Hematocrit 29.4 VOL% (42.0-52.0); Hemoglobin 9.5 GM/DL (14.0-18.0); Immature Granulocytes % 2.2 %; Lymphocytes # 0.7 10*3/uL (1.4-4.0); Lymphocytes % 7.2 % (21.2-54.2); Mean Corpuscular HGB Conc 32.3 GM/DL (32-36); Mean Corpuscular Volume 83.3 FL (87-102); Mean Platelet Volume 11.1 FL (9.6-12.0); Monocytes % 4.8 % (1.7-12.7); Neutrophils % 85.7 % (38.7-73.9); Platelet Count 273 T/CUMM (130-400); Red Blood Count 3.53 MC/CUMM (3.8-5.5); Red Cell Distribution Width 14.5 % (9.3-17.3); White Blood Count 9.2 T/CUMM (4-12)
[2020-03-10 06:33] LABS: Calcium 8.3 MG/DL (8.5-10.1); Osmolality,Calculated 281.5 MOS/KG (273-304)
[2020-03-10] MEDS: ASCORBIC ACID 500 MG TABLET PO SCH ×2 (08:58→20:16)
[2020-03-10] MEDS: amLODIPine 5 MG TABLET PO SCH (08:58)
[2020-03-10] MEDS: DEXAMETHASONE 4 MG TABLET PO SCH (08:58)
[2020-03-10] MEDS: ENALAPRIL 20 MG TABLET PO SCH (08:58)
[2020-03-10] MEDS: ENOXAPARIN 40 MG/0.4 ML SYRINGE SUBCUT SCH (08:59)
[2020-03-10] MEDS: ALPRAZolam 0.5 MG TABLET PO SCH ×2 (09:01→20:16)
[2020-03-11] MEDS: ALBUTEROL INHALER 18 GM INH SCH ×2 (03:01→09:44)
[2020-03-11] MEDS: ASCORBIC ACID 500 MG TABLET PO SCH (08:18)
[2020-03-11] MEDS: DEXAMETHASONE 4 MG TABLET PO SCH (08:18)
[2020-03-11] MEDS: ENOXAPARIN 40 MG/0.4 ML SYRINGE SUBCUT SCH (08:18)
[2020-03-11] MEDS: ALPRAZolam 0.5 MG TABLET PO SCH (08:19)
[2020-03-11] MEDS: ENALAPRIL 20 MG TABLET PO SCH (08:19)
[2020-03-11] MEDS: amLODIPine 5 MG TABLET PO SCH (08:19)
[2020-03-11 12:00] VITALS: BP 131/64
== END 2020-03-11 12:52 | disposition swing bed (61) | DRG 177 ==
LOC: EDBD → EDUNIT# → N.ED 13:08 → N.EDINP 17:56 → SUATTDRO 17:56 → N.2E 19:17
PROVIDERS: ADMIT Internal Medicine; ATTEND Internal Medicine